=== PATIENT | female | born 1940 | race African-American/Black ===

== ENCOUNTER 2020-09-20 17:02 | Inpatient (IN) | payer OTHER ==
[2020-09-20] MEDS ORDERED: SODIUM CHLORIDE 2,041 ML IV ONE (18:32)
[2020-09-20] MEDS ORDERED: ACETAMINOPHEN 1000 MG/100 ML VIAL (NON FORMULARY) IVPB ONE (18:34)
[2020-09-20 19:27] LABS: BASO % 0.2 % (0-2.0); EOS % 0.4 % (0-4.5); HEMATOCRIT 34.5 % (32.4-45.2); HEMOGLOBIN 11.5 GM/dL (10.7-15.3); LYMPH % 10.3 % (8-40); MCHC 33.3 g/dl (32.0-36.0); MEAN CELL VOLUME 87.1 fl (80-96); MONO % 10.3 % (3.8-10.2); NEUT % 78.8 % (42.8-82.8); PLATELET COUNT 342 K/MM3 (134-434); RBC 3.97 M/mm3 (3.60-5.2); RDW 14.1 % (11.6-15.6); WHITE BLOOD COUNT 12.3 K/mm3 (4.0-10.0)
[2020-09-20] MEDS ORDERED: ACETAMINOPHEN INJECTION 100 ML IVPB ONE (19:29)
[2020-09-20 19:36] LABS: INR 1.24 (0.83-1.09); PROTHROMBIN TIME (PATIENT) 14.9 SEC (9.7-13.0)
[2020-09-20 19:39] LABS: ACTIVATED PTT 31.1 SECONDS (25.2-36.5)
[2020-09-20 19:56] LABS: CHLORIDE 108 mmol/L (98-107); SODIUM 141 mmol/L (136-145)
[2020-09-20 19:58] LABS: ALBUMIN 3.2 g/dl (3.4-5.0); ANION GAP 8 MMOL/L (8-16); BLOOD UREA NITROGEN 18.8 mg/dL (7-18); CALCIUM 9.2 mg/dL (8.5-10.1); CO2 25 mmol/L (21-32)
[2020-09-20 19:59] LABS: GLUCOSE,RANDOM 246 mg/dL (74-106)
[2020-09-20 20:01] LABS: SGOT/AST 27 U/L (15-37); SGPT/ALT 37 U/L (13-61)
[2020-09-20 20:02] LABS: CREATININE 0.7 mg/dL (0.55-1.3)
[2020-09-20 20:03] LABS: BILIRUBIN,TOTAL 0.3 mg/dL (0.2-1); TOT PROT 6.9 g/dl (6.4-8.2)
[2020-09-20 20:04] LABS: ALK PHOS 64 U/L (45-117); LACTIC ACID 2.1 mmol/L (0.4-2.0)
[2020-09-20 23:33] LABS: EPI CELLS 28 /uL (0-25.1); HYALINE CASTS 1 /uL (0-3.1); PH,URINE 5.5 (5.0-8.0); URINE APPEARANCE CLEAR; URINE BACTERIA 672 /uL (0-1359); URINE BILIRUBIN NEGATIVE (NEGATIVE); URINE COLOR YELLOW; URINE GLUCOSE (UA) 3+ (NEGATIVE); URINE KETONE NEGATIVE (NEGATIVE); URINE LEUK ESTERASE NEGATIVE (NEGATIVE); URINE NITRITE NEGATIVE (NEGATIVE); URINE PROTEIN 1+ (NEGATIVE); URINE RBC 5 /uL (0-23.9); URINE UROBILINOGEN 0.2 mg/dL (0.2-1.0); URINE WBC 11 /uL (0-25.8)
[2020-09-20] MEDS ORDERED: PIPERACILLIN/TAZOB 3.375 GM 3.375 GM in DEXTROSE 5%-WATER - 50 ML IVPB SCH (23:45)
[2020-09-21] MEDS ORDERED: PIPERACILLIN/TAZOB 3.375 GM 3.375 GM/50 ML BAG IVPB SCH (00:30)
[2020-09-21 02:06] VITALS: BMI 24.8
[2020-09-21] MEDS ORDERED: PIPERACILLIN IVPB SCH (02:24)
[2020-09-21] MEDS ORDERED: SODIUM CHLORIDE IVPB SCH (02:24)
[2020-09-21] MEDS ORDERED: TAZOB IVPB SCH (02:24)
[2020-09-21] MEDS ORDERED: PIPERACILLIN/TAZOBACTAM 3.375 GM VIAL IVPB ONE ×2 (02:30→08:46)
[2020-09-21] MEDS: SODIUM CHLORIDE IVPB SCH ×2 (02:43→09:06)
[2020-09-21] MEDS: TAZOB IVPB SCH ×2 (02:43→09:06)
[2020-09-21] MEDS: PIPERACILLIN IVPB SCH ×2 (02:43→09:06)
[2020-09-21] MEDS: INSULIN SLIDING SCALE (NOVOLOG) 1 VIAL SQ SCH ×4 (06:31→22:04)
[2020-09-21] MEDS ORDERED: SODIUM CHLORIDE 50 ML IVPB ONE (08:46)
[2020-09-21 08:55] LABS: BASO % 0.5 % (0-2.0); EOS % 1.7 % (0-4.5); HEMATOCRIT 33.9 % (32.4-45.2); HEMOGLOBIN 11.2 GM/dL (10.7-15.3); MCH 28.9 pg (25.7-33.7); MEAN CELL VOLUME 87.4 fl (80-96); MEAN PLT VOLUME 7.8 fl (7.5-11.1); MONO % 9.9 % (3.8-10.2); NEUT % 70.9 % (42.8-82.8); PLATELET COUNT 305 K/MM3 (134-434); RBC 3.88 M/mm3 (3.60-5.2); RDW 13.9 % (11.6-15.6); WHITE BLOOD COUNT 9.9 K/mm3 (4.0-10.0)
[2020-09-21] MEDS: ACETAMINOPHEN 325 MG TABLET (FP) PO PRN (09:07)
[2020-09-21] MEDS: POLYETHYLENE GLYCOL 3350 255 GM BTL PO SCH (09:07)
[2020-09-21 09:12] LABS: BLOOD UREA NITROGEN 14.5 mg/dL (7-18); CALCIUM 8.1 mg/dL (8.5-10.1)
[2020-09-21] MEDS: ENOXAPARIN NA (PORCINE) 40 MG/0.4 ML DISP.SYRIN SQ SCH (09:13)
[2020-09-21 09:15] LABS: CREATININE 0.5 mg/dL (0.55-1.3)
[2020-09-21 09:17] LABS: BILIRUBIN,TOTAL 0.5 mg/dL (0.2-1); TOT PROT 5.9 g/dl (6.4-8.2)
[2020-09-21 09:22] LABS: ALBUMIN 2.6 g/dl (3.4-5.0)
[2020-09-22] MEDS: ACETAMINOPHEN 325 MG TABLET (FP) PO PRN (06:40)
[2020-09-22] MEDS: INSULIN SLIDING SCALE (NOVOLOG) 1 VIAL SQ SCH ×4 (06:40→21:41)
[2020-09-22 08:44] LABS: BASO % 0.5 % (0-2.0); HEMATOCRIT 33.9 % (32.4-45.2); HEMOGLOBIN 11.4 GM/dL (10.7-15.3); LYMPH % 22.7 % (8-40); MCH 29.2 pg (25.7-33.7); MCHC 33.7 g/dl (32.0-36.0); MEAN CELL VOLUME 86.4 fl (80-96); MONO % 10.6 % (3.8-10.2); NEUT % 61.2 % (42.8-82.8); PLATELET COUNT 373 K/MM3 (134-434); RBC 3.92 M/mm3 (3.60-5.2); RDW 13.9 % (11.6-15.6); WHITE BLOOD COUNT 7.5 K/mm3 (4.0-10.0)
[2020-09-22 09:01] LABS: CHLORIDE 109 mmol/L (98-107); SODIUM 140 mmol/L (136-145)
[2020-09-22] MEDS ORDERED: DEXTROSE 5%-WATER - 50 ML IVPB ONE (09:48)
[2020-09-22] MEDS ORDERED: cefTRIAXone SODIUM 1 GM VIAL ONE (09:48)
[2020-09-22 09:53] LABS: CALCIUM 8.8 mg/dL (8.5-10.1)
[2020-09-22 09:54] LABS: BLOOD UREA NITROGEN 12.5 mg/dL (7-18); CO2 26 mmol/L (21-32); GLUCOSE,RANDOM 116 mg/dL (74-106)
[2020-09-22 09:57] LABS: CREATININE 0.5 mg/dL (0.55-1.3); SGOT/AST 27 U/L (15-37); SGPT/ALT 43 U/L (13-61)
[2020-09-22 09:58] LABS: TOT PROT 6.6 g/dl (6.4-8.2)
[2020-09-22 09:59] LABS: BILIRUBIN,TOTAL 0.4 mg/dL (0.2-1)
[2020-09-22 10:00] LABS: ALK PHOS 59 U/L (45-117)
[2020-09-22] MEDS ORDERED: CEFTRIAXONE 1 GM in DEXTROSE 5%-WATER - 50 ML IVPB SCH (10:00)
[2020-09-22] MEDS: ENOXAPARIN NA (PORCINE) 40 MG/0.4 ML DISP.SYRIN SQ SCH (10:13)
[2020-09-22] MEDS: POLYETHYLENE GLYCOL 3350 255 GM BTL PO SCH (10:14)
[2020-09-22 10:15] LABS: ANION GAP 6 MMOL/L (8-16)
[2020-09-22] MEDS ORDERED: LORazepam 0.5 MG TABLET PO ONE (19:42)
[2020-09-23] MEDS: INSULIN SLIDING SCALE (NOVOLOG) 1 VIAL SQ SCH ×3 (06:17→17:22)
[2020-09-23] MEDS: POLYETHYLENE GLYCOL 3350 255 GM BTL PO SCH (09:51)
[2020-09-23] MEDS: ENOXAPARIN NA (PORCINE) 40 MG/0.4 ML DISP.SYRIN SQ SCH (09:52)
[2020-09-23] MEDS ORDERED: metoPROLOL SUCCINATE 25 MG TAB.SR.24H (FP) PO SCH (10:00)
[2020-09-23 15:25] VITALS: BP 138/77; PULSE 75; TEMP 98.3
== END 2020-09-23 18:29 | disposition home health service (06) | DRG 57 ==
LOC: JER 17:02 → JERBED 20:55 → J5S 09-21 01:11
PROVIDERS: ADMIT Internal Medicine; ATTEND Internal Medicine
DX: G20 Parkinson's disease (principal); F02.80 Dementia in other diseases classified elsewhere, unspecified severity, without behavioral disturbance, psychotic disturbance, mood disturbance, and anxiety; R26.81 Unsteadiness on feet; I10 Essential (primary) hypertension
CPT/HCPCS: 36415; 70551-TC; 71045-TC-FY; 73030-TC-LT-FY; 80053; 81003; 82550; 82607; 82962; 83036; 83605; 84484; 85025; 85610; 85730; 87040; 87086; 93005; 93010; 97116-GP; 97161-GP; 99285-25; C9803; J0131; U0003; U0005

== ENCOUNTER 2023-03-24 13:08 | Emergency (ER) | payer OTHER ==
[2023-03-24 13:30] VITALS: BP 138/72; PULSE 81; RESP 18; TEMP 98.9; BMI 19.5
== END 2023-03-24 16:01 | disposition home or self-care (01) ==
LOC: JER 13:08
DX: K64.4 Residual hemorrhoidal skin tags (principal); R53.1 Weakness; R21 Rash and other nonspecific skin eruption
CPT/HCPCS: 99283-25